=== PATIENT | female | born 1955 | race Caucasian/White ===

== ENCOUNTER 2022-05-25 17:58 | Emergency (ER) | payer MEDICARE ==
[~2022-05-25] VITALS: Ht 154.9 cm; Wt 99.8 kg
--- NOTE | 2022-05-25 18:16 | NUR ---
TO ER BED 10. BIBS C/O DIZZINESS, PER PT SHE WAS COOKING, GOT HOT AND DIZZY, WAS ADVISED BY MD TO GO TO ER AND GET A HEAD SCAN, HX OF NEURALGIA LEFT SIDE OF FACE. PT STATED THAT AT 1400 TODAY SHE WAS WORKING AND SUDDENLY FELT DIZZY AND FELT NUMBNESS ON THE RIGHT SIDE OF HER FACE AND SYMPTOMS HAVE RESOLVED SINCE THEN. AWAITING MD OAKES.
--- NOTE | 2022-05-25 18:22 | NUR ---
URINE COLLECTED AND SENT
--- NOTE | 2022-05-25 18:32 | NUR ---
SONY Darling [id number]. LABS DRAWN AND COLLECTED AT BEDSIDE.
[2022-05-25 19:56] LABS: CALCIUM, SERUM 8.9 mg/dL (8.5-10.1); CARBON DIOXIDE 25 mmol/L (21-32); CHLORIDE 99 mmol/L (98-107); CREATININE 0.9 mg/dL (0.6-1.3); GLUCOSE 93 mg/dL (74-106); POTASSIUM 4.3 mmol/L (3.5-5.1); SODIUM SERUM 137 mmol/L (136-145); UREA NITROGEN, BLOOD 19 mg/dL (7-18)
[2022-05-25 20:06] LABS: BASOPHILS # (AUTO) 0.1 K/uL (0.0-0.2); BASOPHILS % (AUTO) 0.5 % (0.0-2.0); EOSINOPHILS % (AUTO) 2.4 % (0.0-6.0); HEMATOCRIT 40 % (33-45); HEMOGLOBIN 12.7 g/dL (11.5-14.8); LYMPHOCYTES # (AUTO) 3.6 K/uL (0.8-4.8); LYMPHOCYTES % (AUTO) 21.9 % (20.0-44.0); MEAN CORPUSCULAR HGB CONC 32 g/dl (31.0-36.0); MEAN CORPUSCULAR VOLUME 86 fL (82-100); MONOCYTES # (AUTO) 1.2 K/uL (0.1-1.30); MONOCYTES % (AUTO) 7.2 % (2.0-12.0); NEUTROPHILS # (AUTO) 11.4 K/uL (1.8-8.9); PLATELET COUNT (AUTO) 376 K/uL (150-450); RED BLOOD CELL COUNT(AUTO) 4.58 MIL/uL (4.0-5.2); WHITE BLOOD COUNT (AUTO) 16.7 K/uL (4.3-11.0)
[2022-05-25] MEDS ORDERED: IOHEXOL-350 100 ML VIAL IV ONE (20:07)
--- NOTE | 2022-05-25 20:10 | NUR ---
TROP 51
--- NOTE | 2022-05-25 20:34 | NUR ---
PT TO CT
[2022-05-25 22:54] LABS: BILIRUBIN,URINE NEGATIVE (NEGATIVE); COLOR,URINE YELLOW (YELLOW); LEUKOCYTE ESTERASE ,URINE NEGATIVE (NEGATIVE); NITRITE, URINE NEGATIVE (NEGATIVE); PROTEIN,URINE NEGATIVE (NEGATIVE); UGLUCOSE NEGATIVE (NEGATIVE); UROBILINOGEN,URINE 0.2 EU/dL (0.2)
[2022-05-25] MEDS ORDERED: ACETAMINOPHEN 325 MG TABLET ONE (22:55)
[2022-05-25] MEDS ORDERED: ACETAMINOPHEN 325 MG TABLET PO ONE (23:00)
--- NOTE | 2022-05-25 23:53 | NUR ---
Patient discharged to home in stable condition. Written and verbal after care instructions given. Patient verbalizes understanding of instruction.
[2022-05-26 00:46] VITALS: BP 145/99
== END 2022-05-26 00:47 | disposition home or self-care (01) ==
LOC: ER 18:01
DX: R55 Syncope and collapse (principal); I10 Essential (primary) hypertension
CPT/HCPCS: 99285; 70496; 71045; 93005; 85025; 80048; 87086; 81003; 36415; 84484 ×2; Q9967

== ENCOUNTER 2022-07-08 17:27 | Inpatient (IN) | payer MEDICARE ==
[~2022-07-08] VITALS: Ht 157.5 cm; Wt 101.2 kg
--- NOTE | 2022-07-08 17:50 | NUR ---
BIB RELATIVE C/O FEVER, BODY ACHES & NAUSEA SINCE YESTERDAY PT TOOK TYLENOL AT 12PM. PLACED ON BED, AAOX4, BREATHING EVEN AND UNLABORED SATURATING AT 96%RA.
[2022-07-08] MEDS ORDERED: NITR100C15 PO (17:55)
[2022-07-08] MEDS ORDERED: PANT40TA49 PO (17:57)
[2022-07-08] MEDS ORDERED: LOSA100T31 PO (17:57)
[2022-07-08] MEDS ORDERED: IV NS 0.9% 1,000 ML IV ONE (19:00)
--- NOTE | 2022-07-08 19:19 | NUR ---
FRANCHISE DEVELOPMENT MANAGER AT PT'S BEDSIDE
--- NOTE | 2022-07-08 19:19 | NUR ---
SENIOR ENVIRONMENTAL TECHNICIAN AT PT'S BEDSIDE
--- NOTE | 2022-07-08 19:30 | NUR ---
SWAB FOR COVID19 AND RAPID INFLUENZA ANTIGEN SENT TO LAB.
[2022-07-08 19:43] LABS: ALANINE AMINOTRANSFERASE 112 U/L (12-78); ALBUMIN 3.4 g/dL (3.4-5.0); ALKALINE PHOSPHATASE 95 U/L (46-116); ASPARTATE AMINOTRANSFERASE 144 U/L (15-37); BILIRUBIN,DIRECT 0.4 mg/dL (0.0-0.2); BILIRUBIN,TOTAL 0.7 mg/dL (0.2-1.0); CALCIUM, SERUM 9.1 mg/dL (8.5-10.1); CARBON DIOXIDE 30 mmol/L (21-32); CHLORIDE 99 mmol/L (98-107); CREATININE 1.1 mg/dL (0.6-1.3); GLUCOSE 143 mg/dL (74-106); POTASSIUM 3.8 mmol/L (3.5-5.1); SODIUM SERUM 132 mmol/L (136-145); UREA NITROGEN, BLOOD 15 mg/dL (7-18)
[2022-07-08] MEDS ORDERED: ONDANSETRON HCL/PF 4 MG/2 ML VIAL ONE (20:04)
[2022-07-08 20:15] LABS: BASOPHILS % (AUTO) 0.2 % (0.0-2.0); EOSINOPHILS % (AUTO) 0.2 % (0.0-6.0); HEMATOCRIT 39 % (33-45); HEMOGLOBIN 12.9 g/dL (11.5-14.8); LYMPHOCYTES # (AUTO) 0.3 K/uL (0.8-4.8); LYMPHOCYTES % (AUTO) 2.3 % (20.0-44.0); MEAN CORPUSCULAR HGB CONC 33 g/dl (31.0-36.0); MEAN CORPUSCULAR VOLUME 86 fL (82-100); MONOCYTES # (AUTO) 0.5 K/uL (0.1-1.30); MONOCYTES % (AUTO) 3.9 % (2.0-12.0); NEUTROPHILS # (AUTO) 12.4 K/uL (1.8-8.9); NEUTROPHILS % (AUTO) 93.4 % (43.0-81.0); PLATELET COUNT (AUTO) 294 K/uL (150-450); RED BLOOD CELL COUNT(AUTO) 4.54 MIL/uL (4.0-5.2); WHITE BLOOD COUNT (AUTO) 13.3 K/uL (4.3-11.0)
[2022-07-08] MEDS ORDERED: CEFTRIAXONE 1GM BAG (ER ONLY) 50 ML IV ONE (20:27)
[2022-07-08] MEDS ORDERED: ONDANSETRON HCL/PF 4 MG/2 ML VIAL IV ONE (20:30)
[2022-07-08] MEDS ORDERED: CEFTRIAXONE 1GM BAG (ER ONLY) 1 GM/50 ML PIGGYBACK IV ONE (20:30)
[2022-07-08 20:38] LABS: BILIRUBIN,URINE NEGATIVE (NEGATIVE); COLOR,URINE YELLOW (YELLOW); LEUKOCYTE ESTERASE ,URINE NEGATIVE (NEGATIVE); NITRITE, URINE NEGATIVE (NEGATIVE); PROTEIN,URINE NEGATIVE (NEGATIVE); UGLUCOSE NEGATIVE (NEGATIVE); UROBILINOGEN,URINE 0.2 EU/dL (0.2)
[2022-07-08] MEDS ORDERED: PANTOPRAZOLE 40 MG VIAL IV ONE (22:00)
[2022-07-08] MEDS ORDERED: KETOROLAC TROMETHAMINE INJ 30 MG/ML VIAL IV ONE (22:00)
[2022-07-08] MEDS ORDERED: PANTOPRAZOLE 40 MG VIAL ONE (22:17)
[2022-07-08] MEDS ORDERED: ACETAMINOPHEN ES 500 MG TABLET ONE (22:26)
[2022-07-08] MEDS ORDERED: ACETAMINOPHEN ES 500 MG TABLET PO ONE (22:30)
[2022-07-08] MEDS ORDERED: IV NS 0.9% 250 ML IV ONE (23:06)
[2022-07-08] MEDS ORDERED: CT SWABBABLE VALVE TRANS SET 1 EA INFUS.SET MC ONE (23:06)
[2022-07-08] MEDS ORDERED: IOHEXOL-300 100 ML VIAL IV ONE (23:06)
--- NOTE | 2022-07-08 23:10 | NUR ---
patient taken to CT via [facility]
--- NOTE | 2022-07-09 00:22 | NUR ---
JOSÉ ANTONIO BARBOUR EVENTS ASSISTANT AT PT'S BEDSIDE
[2022-07-09] MEDS ORDERED: ZOLPIDEM TARTRATE 5 MG TABLET PO PRN (00:30)
[2022-07-09] MEDS ORDERED: Z GUARD REMEDY 4 OZ OINT TP PRN (00:30)
[2022-07-09] MEDS ORDERED: MAGNESIUM HYDROXIDE 30 ML UDC PO PRN (00:30)
[2022-07-09] MEDS ORDERED: ACETAMINOPHEN 325 MG TABLET PO PRN (00:30)
[2022-07-09] MEDS ORDERED: MAG HYDROX/AL HYDROX/SIMETH 30 ML UDC PO PRN (00:30)
[2022-07-09] MEDS ORDERED: ONDANSETRON HCL/PF 4 MG/2 ML VIAL IVP PRN (00:30)
[2022-07-09] MEDS ORDERED: VANCOMYCIN 2 GM in IV D5W 500 ML IV ONE (01:00)
[2022-07-09] MEDS ORDERED: HYDROCODONE/APAP 10/325MG TABLET PO PRN (02:00)
[2022-07-09] MEDS ORDERED: ASPI-1169 PO (02:07)
[2022-07-09] MEDS ORDERED: POTA10TA PO (02:07)
[2022-07-09] MEDS ORDERED: TRIA1CAP20 PO (02:07)
[2022-07-09] MEDS ORDERED: DICL1KIT14 TP (02:07)
[2022-07-09] MEDS ORDERED: ACET325C7 PO (02:07)
[2022-07-09] MEDS ORDERED: PANT20TA17 PO (02:07)
[2022-07-09] MEDS ORDERED: GLUC100017 PO (02:07)
[2022-07-09] MEDS ORDERED: VITA1TAB20 PO (02:07)
[2022-07-09] MEDS ORDERED: FEXO-65 PO (02:07)
[2022-07-09] MEDS ORDERED: MELO-107 PO (02:07)
[2022-07-09] MEDS ORDERED: FLUO20CA42 PO (02:07)
[2022-07-09] MEDS ORDERED: LOSA50TA39 PO (02:07)
[2022-07-09] MEDS ORDERED: CA C1TAB98 PO (02:07)
[2022-07-09] MEDS ORDERED: ECON15CR2 TP (02:07)
[2022-07-09] MEDS ORDERED: MONT10TA22 PO (02:07)
[2022-07-09] MEDS ORDERED: PANT40TA49 PO (02:07)
[2022-07-09] MEDS ORDERED: FERR325T23 PO (02:07)
[2022-07-09] MEDS ORDERED: GABA-532 PO (02:07)
[2022-07-09] MEDS ORDERED: METH500T4 PO (02:07)
--- NOTE | 2022-07-09 02:39 | NUR ---
report given to Kaylynn GRIDER to continue care.
--- NOTE | 2022-07-09 02:55 | NUR ---
PT TRANSFERRING TO [facility] VIA HOSPITAL PROTOCOL. VSS. ALL BELONGINGS WITH PT.
--- NOTE | 2022-07-09 03:10 | NUR ---
HEALTH INFORMATION ASSISTANT NOTES: RECEIVED REPORT FROM HELGA GRIDER. PT TRANSFERRED FROM ER VIA [facility], PLACED IN ROOM 119 BED 1. PT AWAKE, ALERT/ORIENTED X4 AND VERBALLY RESPONSIVE. BREATHING EVEN AND UNLABORED. ON ROOM AIR AND PT TOLERATED WELL. O2 SAT 97%. IV ACCESS ON RT WRIST#20G INTACT AND PATENT. NO S/S OF INFILTRATIONS. WILL START NS AT 125CC/HR. NO C/O PAIN OR DISCOMFORT. NO ACUTE DISTRESS. PT AMBULATORY TO THE BATHROOM. ALL SAFETY MEASURES IN PLACE. SIDE RAILS UP X2, BED IN LOWEST POSITION AND LOCKED. PLACE CALL LIGHT WITH IN REACH. WILL CONTINUE TO MONITOR
[2022-07-09] MEDS ORDERED: VANCOMYCIN 1 GM VIAL ONE (03:38)
[2022-07-09] MEDS: IV NS 0.9% 1,000 ML IV PRN ×2 (03:43→23:11)
[2022-07-09 04:00] VITALS: BP_SYST 121; BP_SYST 126; BP_DIAS 67; BP_DIAS 81
--- NOTE | 2022-07-09 04:11 | NUR ---
RN NOTES: PT WANTS TO TAKE NEURONTIN NOW FOR RESTLESS LEG SYNDROME. DOESN'T WANT TO UNTIL [address]. NOTIF[address] DR[address] CHOU, ORDER NEURONTIN 100 MG TAB ONCE. ORDER NOTED AND CARRIED OUT.
[2022-07-09] MEDS ORDERED: GABAPENTIN 100 MG CAPSULE PO ONE (04:30)
[2022-07-09] MEDS ORDERED: PIPERACILLIN /TAZOBACTAM 3.375 G VIAL IV ONE (05:16)
[2022-07-09] MEDS ORDERED: ZOSYN IVPB 3.375 G in IV D5W 50ml IV ONE (06:00)
[2022-07-09] MEDS: PANTOPRAZOLE 40 MG TABLET.DR PO SCH (06:03)
[2022-07-09] MEDS: MELOXICAM 7.5 MG TABLET PO SCH (06:03)
[2022-07-09] MEDS ORDERED: PANTOPRAZOLE 40 MG TABLET.DR PO SCH (07:30)
--- NOTE | 2022-07-09 07:30 | NUR ---
ADAPTIVE PHYSICAL EDUCATION TEACHER AM NOTES: PT IN BED, AWAKE, ALERT/ORIENTED X4, ABLE TO EXPRESS NEEDS, ON ROOM AIR, O2 SAT 100%, BREATHING EVEN AND UNLABORED. DENIES ANY PAIN/DISCOMFORT AT THIS TIME. IV ACCESS ON RT WRIST#20G INTACT AND PATENT. WITH ONGOING NS AT 125CC/HR. SITE CLEAR. ON CARDIAC DIET. PT AMBULATORY TO THE BATHROOM. ALL SAFETY MEASURES IN PLACE. SIDE RAILS UP X2, BED IN LOWEST POSITION AND LOCKED. POC DISCUSSED, VERBALIZED UNDERSTANDING. PLACE CALL LIGHT WITH IN REACH. WILL CONTINUE TO MONITOR
[2022-07-09 08:00] VITALS: BP 130/61
[2022-07-09] MEDS ORDERED: DICLOFENAC SODIUM TP SCH (09:00)
[2022-07-09] MEDS ORDERED: METHYLCELLULOSE 500 MG PO SCH (09:00)
[2022-07-09] MEDS ORDERED: ECONAZOLE NITRATE CREAM 15 GM TUBE TP SCH (09:00)
[2022-07-09] MEDS: ACETAMINOPHEN 325 MG TABLET PO SCH ×2 (09:23→16:46)
[2022-07-09] MEDS: FERROUS SULFATE (325 MG) 325 MG/TAB TABLET PO SCH (09:23)
[2022-07-09] MEDS: LOSARTAN POTASSIUM 50 MG TABLET PO SCH ×2 (09:23→21:41)
[2022-07-09] MEDS: VITAMIN B COMP W-C 1 TAB TABLET PO SCH (09:23)
[2022-07-09] MEDS: ASPIRIN 81 MG TAB.CHEW PO SCH (09:24)
[2022-07-09] MEDS: TRIAMTERENE/HYDROCHLOROTHIAZID (37.5/25MG) 1 UDCAP PO SCH (09:24)
--- NOTE | 2022-07-09 09:30 | NUR ---
RN NOTES DUE MEDS GIVEN
--- NOTE | 2022-07-09 12:09 | NUR ---
WOUND CARE: PT REQUESTS EUCERIN CREAM FOR DRY SKIN ON ARMS AND LEGS. PT DENIES NEED FOR SKIN ASSESSMENT AT THIS TIME. PT IS INDEPENDENT WITH BED MOBILITY. RECOMMENDATIONS MADE FOR SKIN PROTECTION. DISCUSSED WITH NURSING STAFF.
[2022-07-09] MEDS: PIPERACILLIN /TAZOBACTAM 3.375 G in IV D5W 50 ML IV SCH ×3 (13:29→23:11)
[2022-07-09] MEDS: MINERAL OIL/PETROLATUM,WHITE 120 GM JAR TP SCH (13:30)
[2022-07-09] MEDS: VANCOMYCIN 0.75 GM in IV D5W 250 ML IV SCH (13:30)
[2022-07-09 16:00] VITALS: BP 124/73
--- NOTE | 2022-07-09 18:39 | NUR ---
ULTRASONIC HAND SOLDERER CLOSING NOTES: PT IN BED, AWAKE, ALERT/ORIENTED X4, ABLE TO EXPRESS NEEDS, ON ROOM AIR, O2 SAT 100%, BREATHING EVEN AND UNLABORED. DENIES ANY PAIN/DISCOMFORT AT THIS TIME. IV ACCESS ON RT WRIST#20G INTACT AND PATENT. WITH ONGOING NS AT 125CC/HR. SITE CLEAR. ON CARDIAC DIET. PT AMBULATORY TO THE BATHROOM. ALL SAFETY MEASURES IN PLACE. SIDE RAILS UP X2, BED IN LOWEST POSITION AND LOCKED. POC DISCUSSED, VERBALIZED UNDERSTANDING. PLACE CALL LIGHT WITH IN REACH. SAFETY MEASURES IN PLACE. ALL NEEDS MET AT THIS TIME. WILL ENDORSE TO NEXT SHIFT FOR LORIE. FOR PCR TESTING TONIGHT RAPID TEST IN AM.
--- NOTE | 2022-07-09 19:40 | NUR ---
RN OPENING NOTES: RECEIVED PT IN BED SITTING POSITION, AWAKE, ALERT/ORIENTED X4 AND VERBALLY RESPONSIVE. BREATHING EVEN AND UNLABORED. ON ROOM AIR AND PT TOLERATED WELL. IV ACCESS ON LT WRIST#22G INTACT AND PATENT. NO S/S OF INFILTRATIONS. INFUSING NS AT 125CC/HR. NO C/O PAIN OR DISCOMFORT. NO ACUTE DISTRESS. PT AMBULATORY TO THE BATHROOM. ALL SAFETY MEASURES IN PLACE. SIDE RAILS UP X2, BED IN LOWEST POSITION AND LOCKED. PLACE CALL LIGHT WITH IN REACH. WILL CONTINUE TO MONITOR
[2022-07-09 20:00] VITALS: BP 138/80
[2022-07-09] MEDS: cetrizine 10 MG TABLET PO SCH (21:40)
[2022-07-09] MEDS: MONTELUKAST SODIUM (10MG) 10 MG TABLET PO SCH (21:40)
[2022-07-09] MEDS: FLUOXETINE HCL 20 MG CAPSULE PO SCH (21:40)
[2022-07-09] MEDS: GABAPENTIN 100 MG CAPSULE PO SCH (21:40)
[2022-07-09] MEDS ORDERED: GLUCOSAMINE SULFATE 750 MG PO SCH (22:00)
[2022-07-10] MEDS: VANCOMYCIN 0.75 GM in IV D5W 250 ML IV SCH ×2 (01:24→13:52)
[2022-07-10 04:00] VITALS: BP 117/54
[2022-07-10] MEDS: PIPERACILLIN /TAZOBACTAM 3.375 G in IV D5W 50 ML IV SCH ×4 (05:33→23:40)
[2022-07-10] MEDS: MELOXICAM 7.5 MG TABLET PO SCH (06:12)
[2022-07-10] MEDS: PANTOPRAZOLE 40 MG TABLET.DR PO SCH (06:12)
[2022-07-10 07:36] LABS: BASOPHILS # (AUTO) 0.1 K/uL (0.0-0.2); BASOPHILS % (AUTO) 1.3 % (0.0-2.0); EOSINOPHILS % (AUTO) 7.2 % (0.0-6.0); HEMATOCRIT 36 % (33-45); HEMOGLOBIN 11.7 g/dL (11.5-14.8); LYMPHOCYTES # (AUTO) 2.4 K/uL (0.8-4.8); LYMPHOCYTES % (AUTO) 27.3 % (20.0-44.0); MEAN CORPUSCULAR HGB CONC 33 g/dl (31.0-36.0); MEAN CORPUSCULAR VOLUME 88 fL (82-100); MONOCYTES # (AUTO) 0.6 K/uL (0.1-1.30); MONOCYTES % (AUTO) 6.9 % (2.0-12.0); NEUTROPHILS % (AUTO) 57.3 % (43.0-81.0); PLATELET COUNT (AUTO) 274 K/uL (150-450); RED BLOOD CELL COUNT(AUTO) 4.11 MIL/uL (4.0-5.2); WHITE BLOOD COUNT (AUTO) 8.7 K/uL (4.3-11.0)
[2022-07-10 08:06] LABS: CALCIUM, SERUM 8.6 mg/dL (8.5-10.1); CREATININE 0.9 mg/dL (0.6-1.3); POTASSIUM 3.7 mmol/L (3.5-5.1)
[2022-07-10 08:10] LABS: MAGNESIUM 2.1 mg/dL (1.8-2.4); PHOSPHORUS 4.5 mg/dL (2.5-4.9)
[2022-07-10] MEDS: TRIAMTERENE/HYDROCHLOROTHIAZID (37.5/25MG) 1 UDCAP PO SCH (08:48)
[2022-07-10] MEDS: FERROUS SULFATE (325 MG) 325 MG/TAB TABLET PO SCH (08:48)
[2022-07-10] MEDS: VITAMIN B COMP W-C 1 TAB TABLET PO SCH (08:48)
[2022-07-10] MEDS: LOSARTAN POTASSIUM 50 MG TABLET PO SCH ×2 (08:48→21:36)
[2022-07-10] MEDS: ASPIRIN 81 MG TAB.CHEW PO SCH (08:48)
[2022-07-10] MEDS: ACETAMINOPHEN 325 MG TABLET PO SCH ×2 (08:48→17:58)
[2022-07-10] MEDS: MINERAL OIL/PETROLATUM,WHITE 120 GM JAR TP SCH (08:49)
[2022-07-10 12:00] VITALS: BP 114/45
--- NOTE | 2022-07-10 13:25 | NUR ---
SPOKE WITH RJ AT THE PHARMACY TO INQUIRE IF THE VANCO WILL BE GIVEN WITH PENDING TROUGH RESULT. RJ SAID TO ADMINISTER THE MEDICATION SINCE HER KIDNEY FUNCTION IS IMPROVING.
--- NOTE | 2022-07-10 19:00 | NUR ---
BRIDGE MECHANIC CLOSING NOTES: PATINED IN BED, AWAKE, ALERT, ORIENTED X 4. NO SOB NOTED AT THIS TIME PATIENT WITH NO C/O PAIN OR DISCOMFORT THE ENTIRE SHIFT. ALL NEEDS MET AND ANTICIPATED. CALL LIGHT WITHIN REACH. WILL ENDORSE TO NEXT SHIFT NURSE
--- NOTE | 2022-07-10 19:45 | NUR ---
RN OPENING NOTES: RECEIVED PT IN BED SITTING POSITION, AWAKE, ALERT/ORIENTED X4 AND VERBALLY RESPONSIVE. BREATHING EVEN AND UNLABORED. ON ROOM AIR AND PT TOLERATED WELL. IV ACCESS ON LT WRIST#22G INTACT AND PATENT. NO S/S OF INFILTRATIONS. INFUSING NS AT 125CC/HR. NO C/O PAIN OR DISCOMFORT. NO ACUTE DISTRESS. PT AMBULATORY TO THE BATHROOM. ABLE TO MAKE HER NEEDS. COOPERATIVE. ALL SAFETY MEASURES IN PLACE. SIDE RAILS UP X2, BED IN LOWEST POSITION AND LOCKED. PLACE CALL LIGHT WITH IN REACH. WILL CONTINUE TO MONITOR
[2022-07-10 20:00] VITALS: BP 133/71
[2022-07-10] MEDS: MONTELUKAST SODIUM (10MG) 10 MG TABLET PO SCH (21:36)
[2022-07-10] MEDS: GABAPENTIN 100 MG CAPSULE PO SCH (21:36)
[2022-07-10] MEDS: cetrizine 10 MG TABLET PO SCH (21:36)
[2022-07-10] MEDS: FLUOXETINE HCL 20 MG CAPSULE PO SCH (21:36)
[2022-07-10] MEDS: IV NS 0.9% 1,000 ML IV PRN (21:54)
[2022-07-11] MEDS: VANCOMYCIN 0.75 GM in IV D5W 250 ML IV SCH (01:06)
[2022-07-11 04:00] VITALS: BP 143/89
[2022-07-11] MEDS: PIPERACILLIN /TAZOBACTAM 3.375 G in IV D5W 50 ML IV SCH (05:39)
[2022-07-11] MEDS: MELOXICAM 7.5 MG TABLET PO SCH (06:06)
[2022-07-11] MEDS: PANTOPRAZOLE 40 MG TABLET.DR PO SCH ×2 (06:06→09:38)
--- NOTE | 2022-07-11 06:45 | NUR ---
RN CLOSING NOTES: PT IN BED SITTING POSITION, AWAKE, ALERT/ORIENTED X4 AND VERBALLY RESPONSIVE. BREATHING EVEN AND UNLABORED. ON ROOM AIR AND PT TOLERATED WELL. O2 SAT 95%. IV ACCESS ON LT WRIST#22G INTACT AND PATENT. NO S/S OF INFILTRATIONS. INFUSING NS AT 125CC/HR. NO C/O PAIN OR DISCOMFORT. NO ACUTE DISTRESS. PT AMBULATORY TO THE BATHROOM. ABLE TO MAKE HER NEEDS. COOPERATIVE. ALL DUE MEDS GIVEN ORDERED. ALL SAFETY MEASURES IN PLACE. SIDE RAILS UP X2, BED IN LOWEST POSITION AND LOCKED. PLACE CALL LIGHT WITH IN REACH. WILL ENDORSE TO MORNING SHIFT NURSE.
--- NOTE | 2022-07-11 07:30 | NUR ---
RN OPENING NOTE PATIENT IS IN BED, AWAKE, ALERT AND ORIENTED X 4. ON ROOM AIR, BREATHING UNLABORED AND NOT IN ANY FORM OF DISTRESS. LEFT WRIST IV LINE INTACT AND INFUSING WITH NS AT 125 CC/HR. ALL HOSPITAL SAFETY PRECAUTION IN PLACE. BED IS LOCKED IN LOWEST POSITION, 3 SIDE RAILS UP, CALL LIGHT WITHIN REACH. WILL CONTINUE TO MONITOR THROUGHOUT SHIFT.
[2022-07-11 08:00] LABS: CALCIUM, SERUM 8.6 mg/dL (8.5-10.1); CREATININE 0.9 mg/dL (0.6-1.3); POTASSIUM 3.8 mmol/L (3.5-5.1)
[2022-07-11] MEDS: VITAMIN B COMP W-C 1 TAB TABLET PO SCH (09:37)
[2022-07-11] MEDS: FERROUS SULFATE (325 MG) 325 MG/TAB TABLET PO SCH (09:38)
[2022-07-11] MEDS: ASPIRIN 81 MG TAB.CHEW PO SCH (09:38)
[2022-07-11] MEDS: TRIAMTERENE/HYDROCHLOROTHIAZID (37.5/25MG) 1 UDCAP PO SCH (09:38)
[2022-07-11] MEDS: LOSARTAN POTASSIUM 50 MG TABLET PO SCH (09:38)
[2022-07-11] MEDS: ACETAMINOPHEN 325 MG TABLET PO SCH (09:38)
[2022-07-11] MEDS: MINERAL OIL/PETROLATUM,WHITE 120 GM JAR TP SCH (09:40)
[2022-07-11 12:00] VITALS: BP 132/85
[2022-07-11] MEDS ORDERED: PIPERACILLIN /TAZOBACTAM 3.375 G in IV D5W 100 ML IV SCH (13:00)
--- NOTE | 2022-07-11 13:29 | NUR ---
RN CLOSING NOTE PATIENT IS DISCHARGED TO HOME VIA PERSONAL CAR. ALL FORMS SIGNED. DISCHARGE PACKET GIVEN TO PATIENT. IV DISCONTINUED WITH SITE COVERED WITH DRY DRESSING, INNER CANNULA INTACT. PATIENT LEFT THE UNIT IN STABLE DISPOSITION, WITH V/S: T 97.7, HR 63, RR20, O2 96%, BP 132/85.
== END 2022-07-11 16:08 | disposition home or self-care (01) | DRG 872 ==
LOC: ER 17:30 → TRANSITION 07-09 00:12 → MEDSG1 07-09 01:41
PROVIDERS: ADMIT Nurse Practitioner Acute Care; ATTEND Internal Medicine
DX: A41.89 Other specified sepsis (principal); E87.1 Hypo-osmolality and hyponatremia; N39.0 Urinary tract infection, site not specified; Z68.41 Body mass index [BMI] 40.0-44.9, adult; M79.2 Neuralgia and neuritis, unspecified; E66.01 Morbid (severe) obesity due to excess calories; Z20.822 Contact with and (suspected) exposure to COVID-19; I10 Essential (primary) hypertension; M19.90 Unspecified osteoarthritis, unspecified site; Z96.643 Presence of artificial hip joint, bilateral; Z87.440 Personal history of urinary (tract) infections; Z87.891 Personal history of nicotine dependence; Z79.82 Long term (current) use of aspirin; Z79.899 Other long term (current) drug therapy; E78.5 Hyperlipidemia, unspecified; M35.00 Sjogren syndrome, unspecified; D64.9 Anemia, unspecified; R74.01 Elevation of levels of liver transaminase levels; Z68.39 Body mass index [BMI] 39.0-39.9, adult; K57.90 Diverticulosis of intestine, part unspecified, without perforation or abscess without bleeding; B34.9 Viral infection, unspecified
CPT/HCPCS: 36415; 71045-TC; 80048-TC; 80076-TC; 80202-TC; 83605-TC; 83735-TC; 84100-TC; 85025-TC; 85652-TC; 86140-TC; 86803; 87040-TC; 87081-TC; 87086-TC; 87449; 87806; C9113; C9803; G0378; J0696; J2405; J2543; J3370; J7030; J7050; J7060; Q9967; U0003

== ENCOUNTER 2023-08-19 13:12 | Emergency (ER) | payer MEDICARE ==
[~2023-08-19] VITALS: Ht 154.9 cm; Wt 92.1 kg
[~2023-08-19 13:12] MED LIST: ACET325C7 PO; ASPI-1169 PO; CA C1TAB98 PO; DICL1KIT14 TP; ECON15CR2 TP; FERR325T23 PO; FEXO-65 PO; FLUO20CA42 PO; GABA-532 PO; GLUC100017 PO; LOSA100T31 PO; LOSA50TA39 PO; MELO-107 PO; METH500T4 PO; MONT10TA22 PO; NITR100C15 PO; PANT20TA17 PO; PANT40TA49 PO; POTA10TA PO; TRIA1CAP20 PO; VITA1TAB20 PO
[2023-08-19 13:44] VITALS: BP 136/83; TEMP 98.2; O2SAT 99
== END 2023-08-19 13:55 | disposition left against medical advice (07) ==
LOC: ER 13:41
DX: I10 Essential (primary) hypertension (principal); T44.995A Adverse effect of other drug primarily affecting the autonomic nervous system, initial encounter; Z53.21 Procedure and treatment not carried out due to patient leaving prior to being seen by health care provider; Y92.89 Other specified places as the place of occurrence of the external cause